=== PATIENT | female | born 1995 | race Caucasian/White ===

== ENCOUNTER 2018-03-09 11:15 | Emergency (ER) | payer OTHER ==
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
== END 2018-03-09 14:02 | disposition home or self-care (01) ==
LOC: ER 11:15
DX: S80.12XA Contusion of left lower leg, initial encounter (principal); V49.49XA Driver injured in collision with other motor vehicles in traffic accident, initial encounter
CPT/HCPCS: 99283